=== PATIENT | male | born 1945 | race Caucasian/White ===

== ENCOUNTER 2024-11-30 18:10 | Emergency (ER) | payer MEDICARE, SELFPAY ==
[2024-11-30 18:11] VITALS: BP 135/72; PULSE 60; RESP 17; TEMP 36.8; O2SAT 94
[2024-11-30 19:20] VITALS: PULSE 68; RESP 18; O2SAT 99
[2024-11-30 19:21] VITALS: BP 136/81; PULSE 62; RESP 16; TEMP 36.8; O2SAT 95; BMI 25.0
--- NOTE | 2024-11-30 19:58 | XR_ITS ---
Examination: AP chest single view Technique one AP portable upright chest single view Exam date and time: November 30, 20242008 hrs. Indications: Vomiting today Findings: Normal heart size No aspiration pneumonia No visualized hemidiaphragm Impression: No aspiration pneumonia
--- NOTE | 2024-11-30 19:58 | EKG_ITS ---
[facility] Test Date: 2024-11-30 Pat Name: REESE MENG Department: Room: - Gender: Male [employer]: : 1945 Requested By: Esequiel Moore Order Number: [id number] Reading MD: Esequiel Moore Measurements Intervals Rake Rate: 60 P: 54 SD: 213 QRS: 16 QRSD: 80 T: 49 QT: 428 QTc: 430 Interpretive Statements SINUS RHYTHM WITH FIRST DEGREE AV BLOCK SEPTAL MYOCARDIAL INFARCTION , PROBABLY OLD [40+ ms Q WAVE IN V1/V2] Compared to ECG 05/14/2020 17:19:20 First degree AV block now present Myocardial infarct finding now present /store/S0/[id number].pdf
--- NOTE | 2024-11-30 19:59 | EDNOTE_ITS ---
ED Syncope RME/HPI General Chief Complaint: Syncope / Near Syncope Stated Complaint: NEAR SYNCOPE Time Seen by Provider: 11/30/24 19:13 Arrival date/time: 11/30/24 18:10 RME / HPI RME / HPI narrative: 79-year-old male patient came in with family through EMS for evaluation regarding near syncope. Patient was eating dinner, and suddenly developed unresponsiveness which later on followed by vomiting 3 times. Patient family was around all the time there was no mention about fall or head trauma. On my initial evaluation patient was noted to be denying any complaints. No medication was taken prior to arrival. Related Data Home Medications ?Medication ?Instructions ?Recorded ?Confirmed allopurinol 300 mg tablet 300 tab PO QDAY Gout #0 tabs 07/25/15 (Zyloprim) prasugrel 10 mg tablet (Effient) 10 tab PO QDAY Blood Thinner #0 07/25/15 tabs Allergies Allergy/AdvReac Type Severity Reaction Status Date / Time Penicillins Allergy Severe HIVES Verified 05/21/21 10:11 Review of Systems Review of Systems Narrative Review of Systems: Review of system reviewed and within normal limits except mentioned in HPI ED Exam Narrative Physical exam: VITAL SIGNS: Reviewed. GENERAL APPEARANCE: Alert and interactive, follows commands, no acute distress, HEAD AND FACE: Non-traumatic. ENT: PERRL, pink conjunctivitis, eyelid no trauma, Mucous membrane moist. NECK: Supple, nontender, no nuchal rigidity. CHEST: No tenderness, no crepitus, no paradoxical movement, no retractions. LUNGS: Clear, well ventilated, symmetric, no rales, no wheezing, no ronchi, no stridor, good breath sounds bilaterally. HEART: Regular rate, regular rhythm, no murmur, no gallops. ABDOMEN: Soft, positive bowel sounds, nondistended, no guarding, nontender, no rebound, no masses, RECTAL: Deferred. GENITAL: Deferred. NEUROLOGICAL: Gross motor function intact sensory function intact, Appropriate for age. MUSCULOSKELETAL: low back nontender, full range of motion. EXTREMITIES: Nontender, full range of motion. SKIN: Color pink, dry, no rash, no lacerations, no abrasions, no contusions. LYMPHATICS: Deferred. Course Quality Measures none Orders Category Date Time Status EKG (ED ONLY) *Do not use* NOW Care 11/30/24 19:58 Completed EKG (ED Only) Stat Exams 11/30/24 19:58 Draft XR chest 1V Stat Exams 11/30/24 19:58 Completed B-Type Natriuretic Peptide Stat Lab 11/30/24 20:00 Completed CBC Stat Lab 11/30/24 20:00 Completed Comprehensive Metabolic Panel Stat Lab 11/30/24 20:00 Completed Partial Thromboplastin Time Stat Lab 11/30/24 20:00 Completed Prothrombin Time with INR Stat Lab 11/30/24 20:00 Completed Troponin I Stat Lab 11/30/24 20:00 Completed Urinalysis, C/S if Indicated Stat Lab 11/30/24 20:27 Completed Ringers Lactated 1000 ml [Lactated Ringers] 1,000 ml Med 11/30/24 19:59 Discontinued IV 999 mls/hr Vital Signs Vital signs: Vital Signs Temperature 98.2 F 11/30/24 18:11 Pulse Rate 60 11/30/24 18:11 Respiratory Rate 17 11/30/24 18:11 Blood Pressure 135/72 H 11/30/24 18:11 Pulse Oximetry (%) 94 L 11/30/24 18:11 Oxygen Delivery Method Room Air 11/30/24 18:11 Syncope MDM Narrative MDM Narrative:: 79-year-old male patient came in with family through EMS for evaluation regarding near syncope. Patient was eating dinner, and suddenly developed unresponsiveness which later on followed by vomiting 3 times. Patient family was around all the time there was no mention about fall or head trauma. On my initial evaluation patient was noted to be denying any complaints. No medication was taken prior to arrival. EKG showed sinus rhythm, ventricular rate of 60 bpm, RI interval 60 bpm, no ST segment elevation depression noted. Patient's workup today all came back unremarkable troponin is normal. Patient was given IV fluids. Patient verbalized significant improvement of symptoms no recurrence of near syncope noted in the ED. Patient was noted to be ambulatory. Patient data External records reviewed:: None Clinical information provided by:: patient Social determinants that could affect healthcare access:: none Patient has the following chronic illnesses:: Hypertension How is presenting disease/condition affected by chronic disease/condition?: exa cerbated by Evaluation data The following diagnostics were reviewed and interpreted by me:: lab results, radiology exam(s) and EKG tracing(s) Lab and/or radiology exams considered but not ordered:: None Interpretation Summary: Chest x-ray came back unremarkable. The rest of the labs and EKG see MDM Medications / Prescriptions Medications or Prescriptions considered but not ordered:: None Medication administrations:: Medication Administration History Discontinued Medications Lactated Ringer's (Lactated Ringers) 1,000 mls @ 999 mls/hr IV .Q1H1M ONE Stop: 11/30/24 20:59 Last Admin: 11/30/24 20:09 Dose: 999 mls/hr Documented By: COSME IV fluids for hydration Consultations Consultation(s) initiated? (list below): No Diagnosis Syncope Differential Diagnosis: syncope due to orthostatic hypotension, vasovagal syncope and dehydration Most likely diagnosis given after review of the tests above:: Vasovagal syncope Admission Indicated Admission indicated?: not indicated Admission Request Was there a request for admission?: No Disposition Plan Disposition Plan: Discharge Discharge Attestation Discharge Attestation: The patient and all family members were given an opportunity to ask questions and understood the discharge instructions. Discharge instructions specifically effects, indications for sooner follow up or return to the emergency department, and the expected course of current diagnosis. Patient condition: Stable Discharge Plan Plan Patient Disposition: HOME (Self Care) Disposition Comment: stable Prescriptions/Referrals Prescriptions/Med Rec: No Action allopurinol [Zyloprim] 300 MG tablet 300 tab PO QDAY Qty: 0 prasugrel [Effient] 10 MG tablet 10 tab PO QDAY Qty: 0 Referrals: Trip Bowser MD [Primary Care Provider] - In 1 week Problem List Clinical Impression: Vasovagal syncope Patient/Caregiver Discharge Instructions Discharge Activity: activity as tolerated Education Materials: Understanding Vasovagal Syncope Additional Instructions: Thank you for the opportunity for serving you today. You are stable for discharged . You are advised to: Follow-up with your PCP in 1 to 2 days Return to ED for worsening of symptoms Increase oral fluids Print Language: Swedish Stand Alone Forms: Violet Award Info., Patient Portal Info Letter PA/NICKY Supervising Physician FLACO/NICKY Supervising Physician: MD Bess
[2024-11-30] MEDS: RINGERS LACTATED 1000 ML 1,000 ML 999 ML IV (20:09)
[2024-11-30 20:33] LABS: Basophils % (Auto) 0 % (0-2.5); Eosinophils # (Auto) 0.1 Thou/mm3 (0.0-0.5); Eosinophils % (Auto) 1 % (0-10); Hematocrit 31.9 % (41.0-53.0); Hemoglobin 10.6 g/dL (13.5-16.0); Immature Granulocytes % (Auto) 0 % (0-0); Immature Granulocytes Auto 0.02 Thou/mm3 (0.00-0.00); Lymphocytes # (Auto) 1.4 Thou/mm3 (1.0-4.8); Lymphocytes % (Auto) 15 % (10-50); Mean Corpuscular HGB Conc 33.2 g/dl (31.0-37.0); Mean Corpuscular Hemoglobin 30.1 pg (25.0-35.0); Mean Corpuscular Volume 91 fL (80-100); Monocytes # (Auto) 0.6 Thou/mm3 (0.0-0.8); Monocytes % (Auto) 7 % (0-12); Neutrophils # (Auto) 7.1 Thou/mm3 (1.8-7.7); Neutrophils % (Auto) 76 % (37-80); Nucleated Red Blood Cell % 0 /100 WBC (0); Platelet Count 191 Thou/mm3 (140-440); RDW Standard Deviation 54.5 fL (35.1-43.9); Red Blood Count 3.52 Miln/mm3 (4.50-5.90); White Blood Count 9.3 Thou/mm3 (3.8-10.6)
[2024-11-30 20:44] LABS: Collection Type, Urine Clean Catch; Squamous Epithelial Cell,Urine 0 /hpf (0-5)
[2024-11-30 20:47] LABS: Bilirubin,Urine Negative (Negative); Blood,Urine Negative (Negative); Clarity,Urine Clear (Clear/Hazy); Color,Urine Lt-Yellow (Lt Yel-Yel); Culture Indicated,Urine Not Indicated; Glucose, Urine Negative (Negative); Hyaline Casts,Urine < 1 /hpf (0-1); Ketones,Urine Negative (Negative); Leukocyte Esterase,Urine Negative (Negative); Nitrite,Urine Negative (Negative); Protein,Urine Trace (Neg - Trace); RBC,Urine 1 /hpf (0-3); Urobilinogen,Urine Negative mg/dL (0.0-1.0); WBC,Urine 1 /hpf (0-5)
[2024-11-30 20:54] LABS: Prothrombin Time 11.4 Seconds (9.0-12.2)
[2024-11-30 20:59] LABS: Alanine Aminotransferase 47 U/L (10-49); Albumin, Serum 4.2 gm/dL (3.4-4.8); Albumin/Globulin Ratio 1.6 (1.2-2.2); Alkaline Phosphatase 57 U/L (46-116); Anion Gap 7 (7-16); Aspartate Amino Transferase 43 U/L (0-34); BUN/Creatinine Ratio 17 Ratio (12-20); Bilirubin,Total 0.3 mg/dL (0.3-1.2); Blood Urea Nitrogen 19 mg/dL (9-23); Calcium 9.5 mg/dL (8.3-10.6); Calcium (Corrected) 9.5 mg/dL (8.5-10.1); Carbon Dioxide 27.4 mMol/L (20.0-31.0); Chloride 106 mMol/L (98-107); Creatinine (Component) 1.1 mg/dL (0.6-1.3); Estimated Creatinine Clearance 51.7 mL/min (>60); Globulin 2.7 gm/dL (2.3-3.5); Glucose 102 mg/dL (74-106); Osmolality,Calculated 281 (275-295); Potassium 4.6 mMol/L (3.4-5.1); Sodium 140 mMol/L (136-145); Total Protein 6.9 gm/dL (5.7-8.2); Troponin I < 0.020 ng/mL (0.0-0.045); eGFR > 60 See Note
[2024-11-30 21:00] VITALS: BP 146/83; PULSE 72; RESP 18; O2SAT 97
[2024-11-30 21:16] LABS: B-Type Natriuretic Peptide 68 pg/mL (0-100)
[2024-11-30 22:48] VITALS: BP 142/80; PULSE 66; RESP 18; TEMP 36.6; O2SAT 95
== END 2024-11-30 23:02 | disposition home or self-care (01) ==
PROVIDERS: Nurse Practitioner Family; Emergency Provider Emergency Medicine; PCP Internal Medicine
DX: R55 Syncope and collapse (principal); R11.10 Vomiting, unspecified; I44.0 Atrioventricular block, first degree; I10 Essential (primary) hypertension
CPT/HCPCS: 36415; 71045; 80053; 81001; 83880; 84484; 85025; 85610; 85730; 93005; 99284; J7120